=== PATIENT | male | born 1995 | race Hispanic/Latino ===

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

== ENCOUNTER 2017-04-20 12:27 | Emergency (ER) | payer OTHER, SELFPAY | END 2017-04-20 12:37 | disposition home or self-care (01) | LOC: BURERS 12:27 | DX: B35.3 Tinea pedis (principal); D64.9 Anemia, unspecified | CPT/HCPCS: 99282 ==

== ENCOUNTER 2017-06-15 21:01 | Emergency (ER) | payer OTHER ==
[2017-06-15] MEDS ORDERED: Acetaminophen/Codeine 30-300mg Tablet ONE (21:16)
[2017-06-15] MEDS ORDERED: Ibuprofen 800 MG TAB ONE (21:17)
== END 2017-06-15 21:23 | disposition home or self-care (01) ==
LOC: BURERS 21:01
DX: S32.039A Unspecified fracture of third lumbar vertebra, initial encounter for closed fracture (principal); D64.9 Anemia, unspecified; X58.XXXA Exposure to other specified factors, initial encounter
CPT/HCPCS: 99283

== ENCOUNTER 2018-06-19 18:45 | Emergency (ER) | payer OTHER ==
[2018-06-19] MEDS ORDERED: Ciprofloxacin 500 MG TAB ONE (19:27)
== END 2018-06-19 19:52 | disposition home or self-care (01) ==
LOC: BURERS 18:45
DX: R10.30 Lower abdominal pain, unspecified (principal); R19.7 Diarrhea, unspecified
CPT/HCPCS: 96372; J0500

== ENCOUNTER 2019-03-31 22:52 | Emergency (ER) | payer OTHER ==
[2019-03-31] MEDS ORDERED: Sulfameth/Trimethoprim DS 800-160mg TAB ONE (23:07)
[2019-03-31] MEDS ORDERED: traMADol HCl 50 MG TAB ONE (23:07)
== END 2019-03-31 23:13 | disposition home or self-care (01) ==
LOC: BURERS 22:52
DX: L03.116 Cellulitis of left lower limb (principal); S91.105A Unspecified open wound of left lesser toe(s) without damage to nail, initial encounter; X58.XXXA Exposure to other specified factors, initial encounter
CPT/HCPCS: 99282